=== PATIENT | female | born 1960 | race Caucasian/White ===

== ENCOUNTER 2022-03-18 15:02 | Outpatient (CLI) | payer OTHER, SELFPAY ==
[2022-03-18 10:24] LABS: Cholesterol* 187 mg/dL (90-199)
[2022-03-18 10:25] LABS: HDL Cholesterol* 73 mg/dL (>=50); LDL Cholesterol Calculated 99 mg/dL (<100); Triglycerides* 75 mg/dL (40-149)
[2022-03-18 23:16] LABS: Glucose* 105 mg/dL (60-115)
== END 2022-03-18 15:03 | disposition home or self-care (01) ==
PROVIDERS: PCP Internal Medicine; Visit Provider Internal Medicine
DX: Z01.419 Encounter for gynecological examination (general) (routine) without abnormal findings (principal); E78.5 Hyperlipidemia, unspecified; I10 Essential (primary) hypertension; Z13.1 Encounter for screening for diabetes mellitus
CPT/HCPCS: 80061; 82947

== ENCOUNTER 2022-04-25 14:38 | Outpatient (CLI) | payer OTHER, SELFPAY ==
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
[2022-04-25 17:44] LABS: Chloride* 105 mmol/L (96-114); Potassium* 4.2 mmol/L (3.6-5.1); Sodium* 139 mmol/L (135-149)
[2022-04-25 17:47] LABS: Carbon Dioxide* 27 mmol/L (20-32); Creatinine* 0.9 mg/dL (0.5-1.5); Estimated Glomerular Filt Rate 72 ml/min
[2022-04-25 17:48] LABS: Blood Urea Nitrogen* 16 mg/dL (7-30)
[2022-04-25 18:41] LABS: Glucose* 90 mg/dL (60-115)
== END 2022-04-25 14:39 | disposition home or self-care (01) ==
LOC: NFLDREF 14:39
PROVIDERS: PCP Internal Medicine; Visit Provider Internal Medicine
DX: I10 Essential (primary) hypertension (principal); E78.5 Hyperlipidemia, unspecified
CPT/HCPCS: 80048

== ENCOUNTER 2022-04-28 07:15 | Outpatient (CLI) | payer OTHER, SELFPAY ==
--- OUTSIDE RECORDS SUMMARY | 2022-04-28 07:17 | XMS_ITS | Clinical Summary ---
:1960 Author Organization [employer] [facility] [place] [address] Care Team Providers Name Role Phone Misty [...] TRACKING EVENT Routine 03/24/2022 1:25 PM CDT BEATER [place] THIN PREP PAP Routine 03/24/2022 1:25 PM [...] Organization Address City/State/ZIP Code Phon e Number [facility] [address] [place] [address] LABORATORY-CENTRAL 2000 LABORATORY BEATER HEAD THIN PREP PAP SCREEN IMAGED (03/24/2022 1:25 PM CDT) Component Value Ref Test Analysis Performed At [facility] gist Range Method Time Signature Case Report Gynecologic Cytology Report ? Case: [id number] ? 04/12/2022 ALLRUMNEY Authorizing Provider: ??Marcos villalobos, Zonia Zhang MD ?Collected: ? 03/24/2022 1325 ? 6:32 PM HEALTH Ordering Location: ? [facility] CENTRAL LAB ?Received: ?03/28/2022 08 ? CDT [place] BORATORY-C First Screen: ? Jossie Alexis ? ENTRAL Specimen: ?BEATER HEAD ThinPrep Vial Screening, Cervical ? LABORATORY INTERPRETATI [...] Last Pap Date 04/12/2022 6:32 PM CDT [facility] LABORATORY-CENTRAL LABORATORY Comment: 03/2017 Abnormal Pap or [place] No 04/12/2022 6:32 PM [facility] [place] Bx in last 5 years CDT LABORATORY- CENTRAL LABORATORY Menstrual Status Postmenopausal 04/12/2022 6:32 PM [facility] CDT LABORATORY-CENTRAL LABORATORY [place] Bx Done Today No 04/12/2022 6:32 PM [facility] CDT LABORATORY-CENTRAL LABORATORY Additional 04/12/2022 6:32 PM [facility] Information CDT LABORATORY-CENTRAL LABORATORY Comment: Interpreted at [facility] Laboratory, Central Laboratory - [address], [place] [address] Automated Review Failed 04/12/2022 6:32 PM CDT [facility] LABORATORY-CENTRAL LABORATORY Comment: Processing failed, manual scree jp required. ThinPrep Imaging System, [employer] ANCILLARY TESTING HPV Ordered, 04/12/2022 6:32 PM [facility] BEATER HEAD Please see CDT LABORATORY-CENTRAL separate report LABORATORY Note The pap test is a 04/12/2022 6:32 PM [place] [employer] screening CDT LABORATORY-CENTRAL technique, not a LABORATORY [...] Organization Address City/State/ZIP Code Phon e Number [facility] [address] [place] [address] LABORATORY-CENTRAL 2000 LABORATORY HPV HIGH RISK (03/24/2022 1:25 PM CDT) Analysis Performed At Patho logist Time Signature TYPE 16 Negative Negative 03/29/2022 [facility] 5:45 PM CDT LABORATORY-[place] TRAL LABORATORY TYPE 18 Negative Negative 03/29/2022 [facility] 5:45 PM CDT LABORATORY-[place] TRAL LABORATORY OTHER HIGH Negative Negative 03/29/2022 [facility] RISK TYPES 5:45 PM CDT LABORATORY-[place] TRAL LABORATORY Specimen Anatomical Collection Method Collection Time Receive d Time (Source) Location / / Volume Laterality Other (Cervical) 03/24/2022 1:25 PM 03/28 8:27 CDT AM CDT Narrative [facility] LABORATORY-CENTRAL LABORAT ORY - 03/29/2022 5:45 PM CDT HPV types 16, 18, 31, 33, 35, 39, 45, 51, 52, 56, 58, 59, 66 and 68 DNA were undetectable or below the pre-set threshold. Methodology: Darwin Eli 4800 HPV Test Zonia Trammell MD MICROBIOLOGY Performing Organization Address City/[facility] Code Phon e Number [facility] [address] [place], [place] [address] [address] LABORATORY-CENTRAL 2000 LABORATORY from Last 3 Months Insurance Payer Benefit Plan / Subscriber ID Effective Dates Phone Addre ss Type Group BLUE CROSS BLUE CROSS OF [id number] 2015-Present [address] [place] [address] Care Teams Electronics Department Manager Relationship Specialty Start Date End Date Misty Mckoy DO PCP - General Family Practice 09/05/11
== END 2022-04-28 07:16 | disposition home or self-care (01) ==
PROVIDERS: PCP Internal Medicine; Visit Provider Surgery
DX: Z12.11 Encounter for screening for malignant neoplasm of colon (principal); K57.30 Diverticulosis of large intestine without perforation or abscess without bleeding; Z86.010 Personal history of colon polyps
CPT/HCPCS: 45378; 99153; J1200; J2250; J3010

== ENCOUNTER 2022-05-12 15:04 | Outpatient (CLI) | payer OTHER, SELFPAY ==
--- NOTE | 2022-05-12 15:20 | CRLHL7_ITS ---
For Patients: As a result of the Cures Act, medical imaging exams and procedure reports are released immediately into your electronic medical record. You may view this report before your referring provider. If you have questions, please contact your health care provider. BILATERAL SCREENING MAMMOGRAM WITH COMPUTER-AIDED DETECTION AND TOMOSYNTHESIS TECHNIQUE: CC and MLO views were obtained. These mammographic images have been obtained using full-field digital technique. These mammographic images were interpreted with the benefit of computer-aided detection. Breast Tomosynthesis was used in this interpretation. COMPARISON FILM: 02/04/21, 09/05/19, 04/03/18. FINDINGS: There are scattered areas of fibroglandular density. Biopsy clip RIGHT breast. IMPRESSION: There is no radiographic evidence for malignancy. ASSESSMENT: BI-RADS Category 1: Negative RECOMMENDATION: Routine screening mammogram in 1 year. A lay language report of this examination will be provided to the patient. Saeed Bryan M.D. Diagnostic/Nuclear Medicine Radiologist [email or web address] LAUREN:clement Transcribed: 12:58 p.m. PT/Dictated by: Saeed Bryan MD @ 05/13/2022 8:29:00 AM (Electronically Signed)
--- OUTSIDE RECORDS SUMMARY | 2022-05-12 15:24 | XMS_ITS | Clinical Summary ---
:1960 Author Organization [employer] [facility] [place] [address] Care Team Providers Name Role Phone Misty [...] TRACKING EVENT Routine 03/24/2022 1:25 PM CDT HEALTHCARE NETWORK CONSULTANT THIN PREP PAP Routine 03/24/2022 1:25 PM [...] Organization Address City/State/ZIP Code Phon e Number [facility] [address] [place] [address] LABORATORY-CENTRAL 2000 LABORATORY HEALTHCARE NETWORK CONSULTANT THIN PREP PAP SCREEN IMAGED (03/24/2022 1:25 PM CDT) Component Value Ref Test Analysis Performed At [facility] gist Range Method Time Signature Case Report Gynecologic Cytology Report ? Case: [id number] ? 04/12/2022 [place] Authorizing Provider: ??Marcos villalobos, Zonia Zhang MD ?Collected: ? 03/24/2022 1325 ? 6:32 PM HEALTH Ordering Location: ? [facility] CENTRAL LAB ?Received: ?03/28/2022 08 ? CDT [place] BORATORY-C First Screen: ? Jossie Alexis ? ENTRAL Specimen: ?HEALTHCARE NETWORK CONSULTANT ThinPrep Vial Screening, Cervical ? LABORATORY INTERPRETATI [...] Last Pap Date 04/12/2022 6:32 PM CDT [facility] LABORATORY-CENTRAL LABORATORY Comment: 03/2017 Abnormal Pap or [place] No 04/12/2022 6:32 PM [facility] Bx in last 5 years CDT LABORATORY- CENTRAL LABORATORY Menstrual Status Postmenopausal 04/12/2022 6:32 PM [facility] CDT LABORATORY-CENTRAL LABORATORY [place] Bx Done Today No 04/12/2022 6:32 PM [employer] CDT LABORATORY-CENTRAL LABORATORY Additional 04/12/2022 6:32 PM [facility] Information CDT LABORATORY-CENTRAL LABORATORY Comment: Interpreted at [facility] Laboratory, Central Laboratory - [address], [place] [address] Automated Review Failed 04/12/2022 6:32 PM CDT [facility] LABORATORY-CENTRAL LABORATORY Comment: Processing failed, manual scree jp required. ThinPrep Imaging System, [employer] ANCILLARY TESTING HPV Ordered, 04/12/2022 6:32 PM [facility] HEALTHCARE NETWORK CONSULTANT Please see CDT LABORATORY-CENTRAL separate report LABORATORY Note The pap test is a 04/12/2022 6:32 PM [place] screening CDT LABORATORY-CENTRAL technique, not a LABORATORY [...] Organization Address City/State/ZIP Code Phon e Number [facility] [address] [place] [address] LABORATORY-CENTRAL 2000 LABORATORY HPV HIGH RISK (03/24/2022 1:25 PM CDT) Analysis Performed At Patho logist Time Signature TYPE 16 Negative Negative 03/29/2022 [facility] 5:45 PM CDT LABORATORY-[place] TRAL LABORATORY TYPE 18 Negative Negative 03/29/2022 [facility] 5:45 PM CDT LABORATORY-[place] TRAL LABORATORY OTHER HIGH Negative Negative 03/29/2022 [facility] RISK TYPES 5:45 PM CDT LABORATORY-[place] TRAL LABORATORY Specimen Anatomical Collection Method Collection Time Receive d Time (Source) Location / / Volume Laterality Other (Cervical) 03/24/2022 1:25 PM 03/28 8:27 CDT AM CDT Narrative [facility] LABORATORY-CENTRAL LABORAT ORY - 03/29/2022 5:45 PM CDT HPV types 16, 18, 31, 33, 35, 39, 45, 51, 52, 56, 58, 59, 66 and 68 DNA were undetectable or below the pre-set threshold. Methodology: Darwin Eli 4800 HPV Test Zonia Trammell MD MICROBIOLOGY Performing Organization Address City/[facility] Code Phon e Number [facility] [facility] [address] [place], [place] [address] [address] LABORATORY-CENTRAL 2000 LABORATORY from Last 3 Months Insurance Payer Benefit Plan / Subscriber ID Effective Dates Phone Addre ss Type Group BLUE CROSS BLUE CROSS OF [id number] 2015-Present [address] [place] [address] Care Teams Fish Checker Relationship Specialty Start Date End Date Misty Mckoy DO PCP - General Family Practice 09/05/11
== END 2022-05-12 15:05 | disposition home or self-care (01) ==
LOC: MAMMO 15:04
PROVIDERS: PCP Internal Medicine; Visit Provider Internal Medicine
DX: Z12.31 Encounter for screening mammogram for malignant neoplasm of breast (principal)
CPT/HCPCS: 77063; 77067

== ENCOUNTER 2023-03-31 09:21 | Outpatient (CLI) | payer OTHER, SELFPAY ==
--- OUTSIDE RECORDS SUMMARY | 2023-04-02 05:45 | XMS_ITS | Continuity of Care Document ---
Author Name Unknown Organization [facility] Address [address] [place] [address] Phone Care Team Providers Care Anesthesiologist Attending Name Role Phone Nader Melton MD Unavailable Unavailable Allergies, Adverse Reactions, Alerts Substance Reaction Status Criticality No Known allergies Procedures Procedure Date Office/Outpatient Visit,[facility] 2012 Advance Directives Directive Yes / No Effective Date File Name No Information Encounters Encounter Description Practice Location Reason(s) For Visit Diagnoses Date Provider Providers Copied on Encounter Z [facility] [place], [address], [facility], [place] tel:[phone] [employer] No Information Geronimo Doe. [facility] [place], [address], [place], [id number] , [place]. tel:[phone] Office/Outpat ient Visit,[facility], [facility] [place], [address] [place] [address], [address], [place] tel:[phone] [place] [place] [employer] Geronimo Doe. [facility], [address], [place], [id number] , [place]. tel:[phone] Referring Provider: Misty Morales, [facility] [address], [place], [address] . tel:[phone] Family History Family Member Type Diagnosis Age At Onset Problem (finding) Problem (finding) Payers Payer name Insurance type Covered libertarian ID Darinel walters(s) [facility] [id number] [facility] [id number] Social History Type Description Quantity Date Captured Comments Sex Female Smoking Status No Information Chief Complaint And Reason For Visit No Information Reason For Referral Reason For Referral No Information History Of Present Illness Encounter Date Complaint History Of Prese nt Illness No Information Functional Status Date Functional Assessmen t No Information Instructions Date Instruction Additional Infor mation No Information Assessments Type Assessment Date No Information Patient Care Teams Name Effective Dates (start - stop) Status Members No Information
== END 2023-03-31 09:22 | disposition home or self-care (01) ==
LOC: NFLDREF 04-02 05:43
PROVIDERS: PCP Internal Medicine; Referring Provider Internal Medicine; Visit Provider Internal Medicine
DX: E78.5 Hyperlipidemia, unspecified (principal)
CPT/HCPCS: 80061

== ENCOUNTER 2023-07-05 14:21 | Outpatient (CLI) | payer OTHER, SELFPAY ==
--- OUTSIDE RECORDS SUMMARY | 2023-07-05 14:25 | XMS_ITS | Continuity of Care Document ---
Author Name Unknown Organization [facility] Address [address] [place] [address] Phone Care Team Providers Care Hand Mounter Name Role Phone Nader Melton MD Unavailable Unavailable Allergies, Adverse Reactions, Alerts Substance Reaction Status Criticality No Known allergies Procedures Procedure Date Office/Outpatient Visit,[facility] 2012 Advance Directives Directive Yes / No Effective Date File Name No Information Encounters Encounter Description Practice Location Reason(s) For Visit Diagnoses Date Provider Providers Copied on Encounter Z [facility] [place], [address] [place] [address], [facility], [place] tel:[phone] [employer] No Information Geronimo Doe. [facility] [place], [address], [place], [id number] , [place]. tel:[phone] Office/Outpat ient Visit,[facility], [facility] [place], [address] [place] [address], [address], [place] tel:[phone] [place] CERV[employer] Geronimo Doe. [facility], [address], [place], [address] , [place]. tel:[phone] Referring Provider: Misty Morales, [facility] [address], [place], [address] . tel:[phone] Family History Family Member Type Diagnosis Age At Onset Problem (finding) Problem (finding) Payers Payer name Insurance type Covered libertarian ID Darinel walters(s) [facility] [id number] [facility] [id number] Social History Type Description Quantity Date Captured [...]
--- NOTE | 2023-07-05 14:40 | CRLHL7_ITS ---
For Patients: As a result of the Century Cures Act, medical imaging exams and procedure reports are released immediately into your electronic medical record. You may view this report before your referring provider. If you have questions, please contact your health care provider. BILATERAL SCREENING MAMMOGRAM WITH COMPUTER-AIDED DETECTION AND TOMOSYNTHESIS TECHNIQUE: CC and MLO views were obtained. These mammographic images have been obtained using full-field digital technique. These mammographic images were interpreted with the benefit of computer-aided detection. Breast Tomosynthesis was used in this interpretation. COMPARISON FILM: 05/12/22, 02/04/21, 09/05/19. FINDINGS: There are scattered areas of fibroglandular density IMPRESSION: There is no radiographic evidence for malignancy. ASSESSMENT: BI-RADS Category 1: Negative RECOMMENDATION: Routine screening mammogram in 1 year. A lay language report of this examination will be provided to the patient. Jose J Vera M.D. Diagnostic Radiologist [email or web address] SULLY/Dictated by: Jose J Vera MD @ 07/06/2023 9:17:00 AM (Electronically Signed)
== END 2023-07-05 14:22 | disposition home or self-care (01) ==
LOC: MAMMO 14:23
PROVIDERS: PCP Internal Medicine; Visit Provider Internal Medicine
DX: Z12.31 Encounter for screening mammogram for malignant neoplasm of breast (principal)
CPT/HCPCS: 77063; 77067

== ENCOUNTER 2023-10-01 11:45 | Emergency (ER) | payer OTHER, SELFPAY ==
[2023-10-01 11:52] VITALS: BP 154/95; PULSE 84; RESP 16; TEMP 37.7; O2SAT 99; BMI 26.3
--- NOTE | 2023-10-01 12:03 | CT_ITS ---
Patient: ANTHONY CURIEL Facility:?[facility] Patient ID:?[id number] Site Patient ID:?[id number]. Site :?[id number] Study:?CT-Abdomen/Pelvis w/ 80cc [id number] 1:42:10 PM Ordering Physician:Geri Colorado Final Report: INDICATION: Left lower quadrant pain TECHNIQUE: CT abdomen and pelvis acquired with 80 mL Isovue 370 IV contrast. COMPARISON: None. FINDINGS: Lower chest: Unremarkable. Liver: Several cysts throughout the liver. Gallbladder and bile ducts: Unremarkable. No stones or inflammation. No biliary dilatation. Pancreas: Unremarkable. No mass or inflammation. Spleen: Unremarkable. Normal in size. No masses. Adrenal glands: Unremarkable. No nodules. Kidneys: 3.3 cm mass arising from the inferior pole of the right kidney containing macroscopic fat, compatible with a benign angiomyolipoma. GI tract: 2 foci of acute diverticulitis in the sigmoid colon, 1 in the proximal sigmoid on image 92 of series 5 and the 2nd in the mid sigmoid on image 102. Fluid in the pelvis but no free air or abscess. Vasculature: Unremarkable. Mesenteric arteries are patent. Lymph nodes: No lymphadenopathy. Omentum/Peritoneum/Abdominal Wall: Unremarkable. No sign of mass or infiltration. No free air or significant free fluid. Pelvis: Unremarkable. Bones: Unremarkable for age. IMPRESSION: 1. Two separate foci of acute diverticulitis involving the proximal and mid sigmoid colon. No abscess or free air. 2. 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 Please note that all CT scans at this facility use dose modulation, iterative reconstruction, and/or weight-based dosing when appropriate to reduce radiation dose to as low as reasonably achievable. Dictated by Dl Hussein MD @ 10/01/2023 2:07:16 PM Signed by:?Dl Hussein MD @10/01/2023 2:07:16 PM (Electronic Signature)
--- NOTE | 2023-10-01 12:05 | ED.ABDPAIN ---
HPI - Abdominal Pain General Date Seen: 10/01/23 Chief Complaint: Abdominal Pain Stated Complaint: Abdominal pain Time Seen by Provider: 10/01/23 11:48 Source: patient Mode of arrival: ambulatory Limitations: no limitations History of Present Illness HPI narrative: Patient is a 62-year-old female with no pertinent medical problems presenting to emergency department for left lower quadrant abdominal pain. She states she has been having this left lower quadrant pain since yesterday. Pain is intermittent and when it is at its worst is an 8/10 crampy sensation. Does not radiate anywhere. Initially thought it was a muscle strain because she was doing an exercise routine couple days ago that she said was too difficult for her. She became concerned because the pain continued and she has not had much of an appetite. She states she is very regular with her diet and always eats a couple of areas in the morning was unable to due to the discomfort. Is also concerned because she always has a bowel movement in the morning but did not have 1 yet today. Has been passing a little bit of gas but not as much as normal. Denies fevers but has had chills. States she has had previous colonoscopies that said she has diverticulosis. Has never had pain like this before she states. Not aware of any sick contacts. Denies nausea or vomiting. Denies dysuria. Related Data Previous Rx's Medication Instructions Recorded simvastatin 10 mg tablet 10 mg PO .HS #90 tabs 04/04/23 valsartan 80 1 tab PO QDAY #90 tabs 04/04/23 mg-hydrochlorothiazide 12.5 mg tablet fluorouracil 5 % topical cream 1 applic topical .1xw #40 grams 09/07/23 metronidazole 0.75 % topical cream 1 applic topical BID #45 grams 09/07/23 (MetroCream) Allergies Allergy/AdvReac Type Severity Reaction Status Date / Time No Known Drug Allergies Allergy Verified 10/01/23 11:56 Review of Systems Status of ROS Reports: 10 or more systems reviewed and unremarkable except as noted in History and below [facility] Medical History Actinic keratosis ?L57.0 - Actinic keratosis (ICD-10) Surgical History History of foot surgery ?Z98.890 - Other specified postprocedural states (ICD-10) History of benign breast biopsy (2015) ?Z98.890 - Other specified postprocedural states (ICD-10) History of basal cell carcinoma (BCC) of skin (2019) ?Z85.828 - Personal history of other malignant neoplasm of skin (ICD-10) Social History What is your current living situation?: I presently have a place to live Problems where you live: no known problems In the past 12 months, utilities in danger of being shut off: no In past 12 months, lack of transportation kept you from medical appts, meetings, work, or getting things needed for daily living: no In the past 12 mos, have been you worried that your food would run out before you had money to buy more?: never true In the past 12 mos, the food you bought just didn't last and you didn't have money to buy more?: never true Smoking Status: Current some day smoker How often does anyone, including family, friends and others, physically hurt you: never How often does anyone, including family, friends and others, insult or talk down to you: never How often does anyone, including family, friends and others, threaten you with harm: never How often does anyone, including family, friends and others, scream or curse at you: never Little interest or pleasure in doing things: not at all Feeling down, depressed, or hopeless: not at all Exam Narrative: Exam Narrative: Const: Well-nourished, Well-developed, in mild distress Eyes: PERRL, no conjunctival injection, and symmetrical lids HENT: Atraumatic external nose and ears. Moist mucous membranes. Neck: Symmetric, trachea midline, No thyromegaly. CVS: RRR, No murmurs or gallops. Peripheral pulses 2+ and equal in all extremities RESP: Unlabored respiratory effort. Clear to auscultation bilaterally. GI: Left lower quadrant tenderness, Nondistended, No rebound or guarding. MSK:Extremities w/o deformity, Normal Active ROM Skin: Warm, Dry. No rashes or lesions. Neuro: Normal Muscle tone, No focal neurological deficits. Psych: Awake, Alert, & Oriented x3. Appropriate mood and affect. Const: Vital Signs, click to edit/add: Vital Signs - 24 hr 10/01/23 11:52 Temperature 99.8 F H Pulse Rate [Right Pulse Oximeter] 84 Respiratory Rate 16 Blood Pressure [Ri ght Upper Arm] 154/95 H Pulse Oximetry 99 Oxygen Delivery Me thod Room Air Course Vital Signs Vital signs: Initial Vital Signs Temperature 99.8 F H 10/01/23 11:52 Temperature Source Temporal Artery Scan 10/01/23 11:52 Pulse Rate 84 10/01/23 11:52 Pulse Rhythm Regular 10/01/23 11:52 Pulse Strength 3+ Normal 10/01/23 11:52 Respiratory Rate 16 10/01/23 11:52 Blood Pressure 154/95 H 10/01/23 11:52 Blood Pressure Mean 114 H 10/01/23 11:52 Blood Pressure Position Sitting 10/01/23 11:52 Pulse Oximetry 99 10/01/23 11:52 Oxygen Delivery Method Room Air 10/01/23 11:52 Vital Signs Temperature 99.8 F H 10/01/23 11:52 Pulse Rate 84 10/01/23 11:52 Respiratory Rate 16 10/01/23 11:52 Blood Pressure 154/95 H 10/01/23 11:52 Pulse Oximetry 99 10/01/23 11:52 Oxygen Delivery Method Room Air 10/01/23 11:52 Temperature 99.8 F H 10/01/23 11:52 Pulse Rate 84 10/01/23 11:52 Respiratory Rate 16 10/01/23 11:52 Blood Pressure 154/95 H 10/01/23 11:52 Pulse Oximetry 99 10/01/23 11:52 Oxygen Delivery Method Room Air 10/01/23 11:52 MDM - Abdominal Pain MDM Narrative Medical decision making narrative: Patient is a 62-year-old female presenting for left lower quadrant abdominal pain. She does have known diverticulosis so diverticulitis is at the top of my differential. Seems unlikely to be a small bowel obstruction as she has no previous abdominal surgeries. Symptoms can also be secondary to constipation. Will also look for signs of a UTI with a urinalysis. CBC, CMP, COVID/flu/RSV, lipase all ordered. Also ordered a CT scan with IV contrast of the abdomen pelvis. She is not requesting any pain or nausea medicine at this time. CMP shows no concerning abnormalities. Bilirubin slightly elevated 2.0 but this is not a concerning level overall and is unlikely because of her symptoms. No signs of jaundice. Urinalysis shows no concerning findings. COVID/flu/RSV is negative. CBC shows a slightly elevated white count at 12.98. It is neutrophil predominant. This could be sign of bacterial infection will wait for the CT scan to better evaluate. She is not meeting sirs criteria. CT scan shows 2 separate foci of acute diverticulitis. Is consistent with her pain. Is uncomplicated. Antibiotics or no longer recommended for uncomplicated diverticulitis. She will follow up outpatient the primary care provider. 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 Lab Data Labs: Lab Results 10/01/23 10/01/23 Range/Units 12:19 12:24 WBC 12.98 H (4.50-11.00) K/uL RBC 4.38 (4.00-5.20) m/uL Hgb 13.1 (12.0-16.0) gm/dL Hct 39.2 (33.0-51.0) % MCV 90 (80-100) fL MCH 30 (26-34) pg MCHC 33 (32-36) gm/dL RDW Coeff of Coreen 12.9 (11.5-15.5) % Plt Count 262 (140-440) K/uL Neut % (Auto) 77.8 H (42.0-72.0) % Lymph % (Auto) 11.2 L (20-44) % [place] % (Auto) 10.5 (0.0-11.0) % Eos % (Auto) 0.1 (0.0-7.0) % Baso % (Auto) 0.2 (0.0-3.0) % Neut # (Auto) 10.10 H (1.7-7.0) K/uL Lymph # (Auto) 1.50 (0.90-2.90) K/uL [place] # (Auto) 1.40 H (0.00-0.90) K/UL Eos # (Auto) 0.00 (0.00-0.50) K/uL Baso # (Auto) 0.00 (0.00-0.30) K/uL Abs Immat Gran (auto) 0.00 (0.00-0.30) K/uL Imm/Tot Granulo (auto) 0.2 % Sodium 138 (135-149) mmol/L Potassium 3.6 (3.6-5.1) mmol/L Chloride 105 (96-114) mmol/L Carbon Dioxide 25 (20-32) mmol/L Anion Gap 8 (7-15) mEq/L BUN 13 (7-30) mg/dL Creatinine 0.8 (0.5-1.5) mg/dL Estimated Creat Clear 53.91 Estimated GFR 83 ml/min Glucose 115 (60-115) mg/dL Calcium 10.1 (8.4-10.6) mg/dL Total Bilirubin 2.0 H (0.1-1.5) mg/dL AST 28 (12-35) U/L ALT 22 (4-35) U/L Alkaline Phosphatase 55 (40-150) U/L Total Protein 7.3 (6.0-8.3) g/dL Albumin 4.2 (3.3-5.0) g/dL Lipase 50 (23-300) U/L Urine Color Yellow (Yellow) Urine Appearance Clear (Clear) Urine pH 7.0 (5.0-8.5) Ur Specific [place] 1.010 (1.000-1.030) Urine Protein Negative (Negative) Urine Glucose (UA) Negative (Negative) Urine Ketones Negative (Negative) Urine Blood Trace-lysed A (Negative) Urine Nitrite Negative (Negative) Urine Bilirubin Negative (Negative) Urine Urobilinogen 0.2 (0.2-1.0) Ur Leukocyte Esterase Negative (Negative) Urine RBC 2-5 A (0-2) Urine WBC 0-2 (0-5) Ur Squamous Epith Cells None (None-Few) Urine Bacteria None (None) SARS-CoV-2 (PCR) Negative SARS-CoV-2 (Negative) Influenza Type A (PCR) Negative PCR FLU A (Negative) Influenza Type B (PCR) Negative PCR FLU B (Negative) RSV (PCR) Negative PCR RSV (Negative) Imaging Data CT scan abdomen and pelvis: Radiologist's impression: 1. Two separate foci of acute diverticulitis involving the proximal and mid sigmoid colon. No abscess or free air. 2. 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 Please note that all CT scans at this facility use dose modulation, iterative reconstruction, and/or weight-based dosing when appropriate to reduce radiation dose to as low as reasonably achievable. Dictated by Dl Hussein MD @ 10/01/2023 2:07:16 PM Discharge Plan Discharge Clinical Impression: Diverticulitis Patient Disposition: Home, Self-Care Condition: Stable Instructions: Diverticulitis (DC) Additional Instructions: It is not recommended to give you antibiotics for uncomplicated diverticulitis as does not shorten time of recovery time or decrease rate of recurrence. Symptoms likely persist over the following week and should start improving. Take Tylenol and ibuprofen for pain. Return to emergency department for new or worsening symptoms Activity Level: No Restrictions Discharge Diet: Regular Prescriptions: No Action simvastatin 10 mg tablet 10 mg PO .HS Qty: 90 3RF valsartan-hydrochlorothiazide 80-12.5 mg tablet 1 tab PO QDAY Qty: 90 3RF fluorouracil 5 % cream 1 applic topical .1xw Qty: 40 0RF metronidazole [MetroCream] 0.75 % cream 1 applic topical BID Qty: 45 1RF Rx Instructions: Apply topically to face Monday, Monday and Monday. Follow Up/Referrals: Zonia Trammell MD [Primary Care Provider] - Stand Alone Forms: [employer] Info Instructions
[2023-10-01 12:31] LABS: Basophils Percent Auto 0.2 % (0.0-3.0); Eosinophils Percent Auto 0.1 % (0.0-7.0); Hematocrit 39.2 % (33.0-51.0); Hemoglobin* 13.1 gm/dL (12.0-16.0); Immature Granulocytes Pct Auto 0.2 %; Lymphocytes Percent Auto 11.2 % (20-44); Mean Corpuscular HGB Conc 33 gm/dL (32-36); Mean Corpuscular Hemoglobin 30 pg (26-34); Mean Corpuscular Volume 90 fL (80-100); Monocytes Percent Auto 10.5 % (0.0-11.0); Neutrophils Percent Auto 77.8 % (42.0-72.0); Platelet Count* 262 K/uL (140-440); RDW Coefficient of Variation % 12.9 % (11.5-15.5); Red Blood Count 4.38 m/uL (4.00-5.20); White Blood Count* 12.98 K/uL (4.50-11.00)
[2023-10-01 12:35] LABS: Slide Review Reflex No
[2023-10-01 12:40] LABS: Appearance Urine Clear (Clear); Bilirubin Urine Negative (Negative); Blood Urine Trace-lysed (Negative); Color Urine Yellow (Yellow); Glucose Urine Negative (Negative); Ketones Urine Negative (Negative); Leukocyte Esterase Urine Negative (Negative); Nitrite Urine Negative (Negative); Protein Urine Negative (Negative); Urobilinogen Urine 0.2 (0.2-1.0)
[2023-10-01 12:49] LABS: Albumin* 4.2 g/dL (3.3-5.0); Chloride* 105 mmol/L (96-114); Sodium* 138 mmol/L (135-149)
[2023-10-01 12:50] LABS: Potassium* 3.6 mmol/L (3.6-5.1)
[2023-10-01 12:52] LABS: Alanine Aminotransferase* 22 U/L (4-35); Alkaline Phosphatase* 55 U/L (40-150); Anion Gap 8 mEq/L (7-15); Aspartate Amino Transferase* 28 U/L (12-35); Blood Urea Nitrogen* 13 mg/dL (7-30); Calcium* 10.1 mg/dL (8.4-10.6); Carbon Dioxide* 25 mmol/L (20-32); Creatinine* 0.8 mg/dL (0.5-1.5); Est. Creatinine Clearance* 53.91; Estimated Glomerular Filt Rate 83 ml/min; Glucose* 115 mg/dL (60-115); Lipase* 50 U/L (23-300); Total Protein* 7.3 g/dL (6.0-8.3)
[2023-10-01 13:06] LABS: WBC Urine 0-2 (0-5)
[2023-10-01 13:10] LABS: PCR FLU A Negative PCR FLU A (Negative); PCR FLU B Negative PCR FLU B (Negative); PCR RSV Negative PCR RSV (Negative); SARS PCR* Negative SARS-CoV-2 (Negative)
== END 2023-10-01 14:39 | disposition home or self-care (01) ==
PROVIDERS: Emergency Provider Student in an Organized Health Care Education/Training Program; PCP Internal Medicine
DX: K57.32 Diverticulitis of large intestine without perforation or abscess without bleeding (principal)
CPT/HCPCS: 36415; 74177; 80053; 81001; 83690; 85025; 87631; 99283; 99284; Q9967

== ENCOUNTER 2024-05-06 10:00 | Outpatient (CLI) | payer OTHER, SELFPAY ==
--- OUTSIDE RECORDS SUMMARY | 2024-05-09 07:39 | XMS_ITS | Data Portability ---
Author Organization [facility], Main Office Address [address] [place] [address] Assessment Encounter Date Assessment Date Assessment LastModified by Organization Details LastModified Time 09/03/2018 09/03/2018 1. Basal carcino ma right upper medial cheek. We discussed the risks benefits of Mohs surgery including pain, discomfort, bruising, healing, the length of the scar versus the width of the defect. Potential need for revision. Chance of infection of 2%. Verbal and written informed consent obtained. Anatomic lines marked prior to anesthesia. Area cleansed with alcohol followed by Betadine. The area was anesthetized 1% lidocaine with epinephrine. M19-018 Stage I: Curette debulking performed. 2 mm margins taken circumferentially to the deep dermis abutting the subcutis. One section total. Interpretation reveals no basaloid islands. Total stages 1, total sections 1. Final defect measuring approximately 1.5 x 1.1 cm. Further anesthesia was injected 1% lidocaine with epinephrine. The area was closed in elliptical fashion removing redundancy superior inferior lateral. Undermined all directions 1 cm. Hemostasis obtained with electrocautery. Closed with 5-0 Vicryl and then 5-0 Prolene. Final closure length 3.79 cm. Wound care instructions given. Pressure dressing applied. Recommend ice on and off for the next 24 hours. Sutures removed in 1 week in [place]. Written and verbal wound care instructions given. Cell phone number given. [email or web address] Not available 09/04/2018 00:29:49 Plan of Treatment Reminders Order Date Submit Date Provider Last Modified By Organization Details Last Modified Time Details Appointments None record ed. Lab None record ed. Referral None record ed. Procedures None record ed. Surgeries None record ed. Imaging None record ed. Medication Orders None record ed. Patient TargetsNo targets recorded. Patient InstructionsNo instructions recorded. Reason for Referral None Reported. Problems Name Problem SNOMED Code Status Onset Date Resolution Date Notes Provider Name and Address Organization Details Recorded Time Hyperlipidemi a 80646010 Active 2018 Roque Cee MD [address] [place] [address],[facility], [place], [address], [facility] 9 22:43:41 Problem Notes None recorded. Medical Equipment None Reported. Allergies No known drug allergies Medications Name Sig Start Date Stop Date Status Note LastModified by Organization Details LastModified Time fluorouracil 5 % topical cream active Not Available Not Available Not Available simvastatin 10 mg tablet 1 tablet every day by oral route. active Not Available Not Available No t Available Vitals None Recorded Social History Question Answer Notes LastModified by Organizat ion Details LastModified Time Tobacco Smoking Status Current Every Day Smoker Not Available [facility] 05/05/2020 03:34:37 What Is Your Level Of Alcohol Consumption? Moderate [id number] Information not available 05/05/2020 Animal Exposure? Yes 2 Dogs, 1 Cat Information not available 09/03/2018 What Was The Date Of Your Most Recent Tobacco Screening? 09/03/2018 [id number] Information not available 05/05/2020 Sun Exposure Minimal Information not available 09/03/2018 Do You Use Sunscreen Routinely? Yes [id number] Information not available 05/05/2020 Tanning Bed Exposure No Information not available 09/03/2018 Sex: Unknown Functional Status None recorded. Mental Status None recorded. Family History Relationship Description Onset Age of this Age Resolved Age Notes LastModified by Organization Details LastModified Time Maternal Uncle Basal cell carcinoma of skin 60 Not available 2018 10:42:23 Father Basal cell carcinoma of skin 60 Not available 2018 10:42:23 Mother Basal cell carcinoma of skin 65 Not available 2018 10:42:23 Maternal Grandfather Diabetes mellitus 70 Not available 2018 10:42:23 Paternal Grandmother Malignant tumor of breast 62 65 Not available 2018 10:42:23 Medical History Condition Response Diabetes N Bleeding Disorder N Squamous Cell Carcinoma N Arthritis N Blood Clot N AIDS/HIV N Tuberculosis N Cancer N Stroke N Melanoma N Thyroid Problems N Asthma N Pacemaker N Anemia N Basal Cell Carcinoma Y Skin Cancer Y Hepatitis N Liver Disease N Heart Disease N Pulmonary Embolism N Hypertension N Seasonal Allergies N Kidney Disease N Gynecological HistoryNo gynecological history recorded. Obstetrics History GPAL:G 0 P 0 0 0 0 Past Encounters Encounter ID Performer Location Encounter Start Date Encounter Closed Date Diagnosis/Indication Diagnosis SNOMED-CT Code Diagnosis ICD10 Code [id number] Roque Cee MD Main Office [address] [facility] [address],[facility] [place] [address] 09/03/2018 10:39:17 09/03/2018 22:53:03 Basal cell carcinoma of face [id number] C44.319 Health Concerns Section Related Observation LastModified by Organization Detai ls LastModified Time None Recorded Concern Status LastModified by Organization Details LastModified Time None Recorded Advance Directives Directive None Recorded Payers Encounter Date Sequence Insurance Name Policy Number Policy Soto Covered Member ID Soto Member ID Guarantor Name 09/03/2018 1 [employer] CHO[employer] [facility] PL[facility] (POS) IFB Diya Watts [id number] Diya Watts 09/03/2018 2 [employer] IFB Diya Watts [id number] Diya Watts Notes Date Note Type Note Provider Name and Address Organization Details Recorded Time 09/03/2018 text/html HPI Notes: 57-year-old female known to me from the [facility] where I biopsied a keratotic lesion most likely basaloid carcinoma on the right medial cheek. Potentially desmoplastic trichoepithelioma. We discussed the differential plan to proceed with procedure for basal cell carcinoma. Both these lesions act like a basal cell carcinoma. She is accompanied by her today. Past medical history includes hyperlipidemia. Social history does not smoke. She is a realtor. Family history no basal cell squamous cell nor melanoma. Roque Cee MD [address] [facility] [place], [address], [facility] 09/04/2018 00:29:53 OBGyn Episode No OBEpisode recorded.
--- OUTSIDE RECORDS SUMMARY | 2024-05-09 07:39 | XMS_ITS | Clinical Summary ---
Author Organization [facility] Address [place], [place] [address] Care Team Providers Care Farm Operations Manager Name Role Phone Misty Mckoy Primary Care Provider Allergies No known active allergies Medications No known medications Active Problems Problem Noted Date Diagnosed Date Onychomycosis-right second toe 12/31/2013 Personal history of colonic polyps 09/13/2011 Overview (09/13/2011): Colonoscopy 09/2011 polyp repeat in 5 years Unspecified vitamin D deficiency 09/02/2009 Unspecified hypothyroidism 09/02/2009 Resolved Problems Problem Noted Date Diagnosed Date Resolved Date Anxiety State, Unspecified 03/07/2007 0 02/16/2012 Immunizations Name Administration Dates Next Due DT (Age < 7 years) 02/23/2000 Tdap 05/04/2011 Family History Medical History Relation Name Comments Cancer Maternal Grandfather basal c ell skin cancer Diabetes Maternal Grandfather Cancer Maternal Grandmother lung- s mall cell (non smoker)/basal cell skin cancer Cancer-breast Paternal Grandmother Anesthesia Problem No Family History Blood Disease No Family History Relation Name Status Comments Brother Alive Father Alive Maternal Grandfather Maternal Grandmother Mother Alive Paternal Grandmother Social History Tobacco Use Types Packs/Day Years Used Date Smoking Tobacco: Every Day Cigarettes Last attempted to quit: 10/02/2003 Smokeless Tobacco: Never Tobacco Cessation:Ready to Q uit: No; Counseling Given: Yes Alcohol Use Standard Drinks/Week Comments Yes 5.8 (1 standard drin k = 0.6 oz pure alcohol) 1 glass of wine a day / 7-10 drinks per wk Sex and Gender Information Value Date Recorded Sex Assigned at Not on file Gender Identity Not on file Sexual Orientation Not on file Obstetrics History Last Filed Vital Signs Vital Sign Reading Time Taken Comments Blood Pressure 145/73 04/27/2016 1:52 PM CDT Pulse 86 04/27/2016 1:52 PM CDT Temperature 36.4 ??C (97.6 ??F) 09/17/2015 8:40 AM CD T Respiratory Rate - - Oxygen Saturation 100% 04/27/2016 1:52 PM CDT Inhaled Oxygen Concentration - - Weight 66.9 kg (147 lb 6.4 oz) 04/27/2016 1:52 P M CDT Height 166 cm (5' 5.35) 04/27/2016 1:52 PM CDT Body Mass Index 24.26 04/27/2016 1:52 PM CDT Plan of Treatment Health Maintenance Due Date Last Done Comments HIV for age 15-65 11/06/1974 Hepatitis C screening for age 18-79 11/06/1977 Zoster (shingles) series for age 50+ (1 of 2) 11/06/2009 Mammogram for age 45-75 05/13/2016 05/13/20 15, 05/11/2015, 02/25/2013, Additional history exists Colonoscopy through age 75 09/12/2016 09/13/2011, Depression screening for age 12+ 09/16/2016 09/17/2015 BMI (ht and wt on same day) for age 18+ 04/27/2017 04/27/2016 Lipids for age 45-75 02/25/2018 02/25/2013, 12/26/19 09 Tetanus booster 05/04/2021 05/04/2011 COVID-19 vaccine series (2023- season) 2024 Influenza for age 50-64 03/03/2024 05/04/2011 (Decli braden) Pap test for age 21-65 03/24/2025 2, 03/24/2022, 03/09/2017, Additional history exists Tdap Completed 05/04/2011 Pneumococcal series for age 6-64 Aged Out No longer eligible based on patient's age to complete this topic Procedures Procedure Name Priority Date/Time Associated Diagnosis Comments HPV HIGH RISK Routine 03/24/2022 1:25 PM CDT XR FFDM MAMMO UNI ADDL VIEWS RIGHT (IA) Routine 05/13/2015 2:30 PM MITTEN SEWER Abnormal mammogram LIPID PANEL W REFLEX MEASURED LDL Routine 02/25/2013 12:14 PM CDT Screening, lipid from Last 3 Months or Most Recently Relevant to Health Maintenance Results * HPV HIGH RISK (03/24/2022 1:25 PM CDT) TYPE 16 Negative Negative 03/29/2022 5:45 PM CDT [facility] TYPE 18 Negative Negative 03/29/2022 5:45 PM CDT [facility] OTHER HIGH RISK TYPES Negative Negative 03/29/2022 5:45 PM CDT [facility] Other (Cervical) 03/24/2022 1:25 PM CDT 03/28/2022 8:27 AM CDT Narrative [facility] - 03/29/2022 5:45 PM CDT HPV types 16, 18, 31, 33, 35, 39, 45, 51, 52, 56, 58, 59, 66 and 68 DNA were undetectable or below the pre-set threshold. Methodology: [employer] 4800 HPV Test Zonia Trammell MD MICROBIOLOGY [facility] [address] [place] [address], * XR FFDM MAMMO UNI ADDL VIEWS RIGHT (05/13/2015 2:30 PM MITTEN SEWER) Anatomical Region Laterality Modality BREASTS, Breast Right Right Mammograph y Impressions 05/13/2015 7:25 PM MITTEN SEWER BI-RADS Category 4: Suspicious RECOMMENDATION: ??Stereotactic biopsy. NOTE: ??I discussed today's imaging findings with the patient. ??The biopsy will be scheduled through the Clinic Commutator Operator prior to the patient leaving today. Jack Vieira D.O. Diagnostic Radiologist [email or web address] GLORIA/yamilka ?? / Narrative 05/13/2015 7:25 PM MITTEN SEWER ADDITIONAL VIEWS RIGHT BREAST DIGITAL MAMMOGRAM, 05/13/2015 CLINICAL HISTORY: ??Recall for further evaluation of developing cluster of microcalcifications in the posterolateral RIGHT breast seen on screening mammogram 05/11/2015. ?? BREAST COMPOSITION: ??Scattered fibroglandular densities. TECHNIQUE: ??Standard MLO, standard ML and magnification views of the RIGHT breast in the MLO and CC projections. FINDINGS: ??Examination demonstrates an indeterminate cluster of microcalcifications in the posterior 9 o? clock position of the RIGHT breast. ??The cluster measures approximately 3 mm in diameter. ?? Misty Mckoy DO MAMMO * (ABNORMAL) LIPID PANEL W REFLEX MEASURED LDL (02/25/2013 12:14 PM CDT) CHOLESTEROL,TOTAL 207(H) 100 - 199 mg/dL 02/25/2013 12:43 PM CDT [facility] TRIGLYCERIDES 103 <150 mg/dL 02/25/2013 12:43 PM CDT [facility] HDL CHOLESTEROL 73 >40 mg/dL 3 12:43 PM T [facility] NON-HDL CHOLESTEROL 134 <145 mg/dl 02/25/2013 12:43 PM T [facility] CHOL/HDL RATIO 2.84 <4.50 02/25/2013 12:43 PM T [facility] LDL CHOLESTEROL 113 <=130 mg/dL 02/25/2013 12:43 PM T [facility] PATIENT STATUS NON-FASTI NG 02/25/2013 12:43 PM T [facility] Blood specimen (specimen) BLOOD SPECIMEN / Unknown Venipuncture / Unknown 02/25/2013 12:14 PM CDT 02/25/2013 12:14 PM CDT Misty Mckoy DO CHEMISTRY [facility] [address] [place] [address] from Last 3 Months or Most Recently Relevant to Health Maintenance Care Teams Farm Operations Manager Relationship Specialty Start Date End Date Misty Mckoy DO PCP - General Family Practice 09/05/11
--- OUTSIDE RECORDS SUMMARY | 2024-05-09 07:39 | XMS_ITS | Continuity of Care Document ---
Author Organization [facility] Address [phone] Phone Care Team Providers Care Order Takers Supervisor Name Role Phone Nader Melton MD Unavailable Unavailable Allergies, Adverse Reactions, Alerts Substance Reaction Status Criticality No Known allergies Procedures Procedure Date Office/Outpatient Visit,[facility] 2012 Advance Directives Directive Yes / No Effective Date File Name No Information Encounters Encounter Description Practice Location Reason(s) For Visit Diagnoses Date Provider Providers Copied on Encounter [facility], [address] [place] [address], , [address], [place] tel:[phone] Relayr No Information 4 Geronimo Doe. [facility], [address], [place], [address], [place]. tel:[phone] Office/Outpat ient Visit,[facility], [facility] [place], [address], , [address], [place] tel:[phone] [facility] 3 Geronimo Doe. [facility], [address], [place], [address], . tel:[phone] Referring Provider: Misty Morales, [facility] [address], [place], [address] . tel:[phone] Family History Family Member Type Diagnosis Age At Onset Problem (finding) Problem (finding) Payers Payer name Insurance type Covered republican ID Darinel walters(s) [facility] [id number] [facility] [id number] Social History Type Description Quantity Date Captured [...]
== END 2024-05-06 10:01 | disposition home or self-care (01) ==
LOC: NFLDREF 05-09 07:37
PROVIDERS: PCP Internal Medicine; Referring Provider Internal Medicine; Visit Provider Internal Medicine
DX: E78.5 Hyperlipidemia, unspecified (principal); I10 Essential (primary) hypertension
CPT/HCPCS: 80048; 80061

== ENCOUNTER 2024-07-08 10:06 | Outpatient (CLI) | payer OTHER, SELFPAY ==
--- NOTE | 2024-07-08 10:15 | CRLHL7_ITS ---
For Patients: As a result of the Century Cures Act, medical imaging exams and procedure reports are released immediately into your electronic medical record. You may view this report before your referring provider. If you have questions, please contact your health care provider. BILATERAL SCREENING MAMMOGRAM WITH COMPUTER-AIDED DETECTION AND TOMOSYNTHESIS TECHNIQUE: CC and MLO views were obtained. These mammographic images have been obtained using full-field digital technique. These mammographic images were interpreted with the benefit of computer-aided detection. Breast Tomosynthesis was used in this interpretation. COMPARISON FILM: 07/05/23, 05/12/22, 02/04/21. FINDINGS: There are scattered areas of fibroglandular density. IMPRESSION: There is no radiographic evidence for malignancy. ASSESSMENT: BI-RADS Category 1: Negative RECOMMENDATION: Routine screening mammogram in 1 year. A lay language report of this examination will be provided to the patient. Jose J Vera M.D. Diagnostic Radiologist [email or web address] SP/Dictated by: Jose J Vera MD @ 07/08/2024 11:43:00 AM (Electronically Signed)
== END 2024-07-08 10:07 | disposition home or self-care (01) ==
LOC: MAMMO 10:07
PROVIDERS: PCP Internal Medicine; Visit Provider Internal Medicine
DX: Z12.31 Encounter for screening mammogram for malignant neoplasm of breast (principal)
CPT/HCPCS: 77063; 77067

== ENCOUNTER 2025-03-06 09:00 | Outpatient (RCR) | payer MEDICARE, BC, SELFPAY ==
--- NOTE | 2024-12-06 16:21 | PT.OPEX ---
PT [place] Outpatient Eval PT [facility] Outpatient Eval Start: 12/06/24 13:14 Freq: Status: Active Protocol: Document 12/06/24 13:15 CASIE (Rec: 12/06/24 16:00 CASIE [id number]) E-signed By Freya Puente DPT Physical Therapy Outpatient Evaluation Insurance Information Recert Due Date 03/06/25 Insurance Name Medicare B,Blue Cross/Blue Shield Medical Diagnosis R hip pain Treating Diagnosis R hip pain, R buttock pain, LBP, R ITB tightness, pelvic instability, core/hip/glut weakness, interrupted sleep Subjective Subjective Patient reports chronic R hip/buttock pain and R ITB tightness/pain for the last 3 months. States she was doing yoga and working out regularly when she started to have some soreness in her chest muscles. She stopped working out for a bit to recover. When she returned to working out she was doing a workout that included a lot of squats. She had flare up of R hip pain. She discontinued the workouts again to recover - hasn't been working out the last couple of months. She has been able to walk better again but continues to have R hip/buttock pain at night. Typically sleeps on her L side but has R hip/buttock/ITB pain that interrupts her sleep. Patient saw MD earlier this week . Started taking naproxsyn 2x/day, feels it has been helpful. Hasn't been using ice/heat. Pain range 0-5/ 10. Patient reports hx of LBP issues, disc issues. Denies any issues with LB lately but during PT session did report some LBP with bridging. 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 Pain range 0-5/10. Patient reports minimal to no pain during the day with standing, walking, sitting. She was having some pain in R hip/buttock/ITB with standing/walking a few months ago but that has been better. Continues to have R hip/buttock/ITB pain with laying down, rolling over. Pelvic alignment assessed and rotation noted this session. Able to improve alignment with MET. Patient reports some R hip pain with R hip flex and abd ROM. Core/hip/glut weakness noted with hx of LBP and currently R hip/buttock pain and pelvic instability. Patient has been able to be active with walking, states she can get 12,000 steps when out working in the yard/ garden. Sleep is interrupted by pain. She has been using naproxsyn the last couple of days - that seems to be helping some. Hasn't tried ice/heat. Able to loosen up LB/buttock/hips with MT treatment this session. Able to initiate some exercises and issue for HEP. Patient would benefit from skilled PT for pain/ sx management, improved R hip mobility/ROM, core/hip/ glut strengthening, posture/body mechanics training, improved pelvic stability, and establishment of HEP. Plan of Care Rehabilitation Good Potential Physical Therapy 1. Decrease R hip/buttock/ITB pain to less than/equal Goals to 3/10 with daily/home activities, sleep position, and with the progression of PT activities over the next 4-6 weeks. 2. Improve R hip mobility/ROM over the next 4-6 weeks for decreased stress on R hip, decreased R hip/buttock pain, improved tolerance for sidelying sleep positions, and improved sleep. 3. Improve hip/glut/LE/core strength and pelvic stability over the next 10-12 weeks for decreased stress to R hip/SI/pelvis, decreased R hip/buttock/ITB pain, improved tolerance for sidelying sleep position, improved sleep, and return to PLF with yoga/workouts without flare up of pain. 4. Patient will be I with HEP within 12 weeks for progression toward above goals, ongoing self management of pain/sx, ongoing self improvements in L hip ROM/mobility/strength, improved pelvic stability, and for return to daily/home/workout activities per PLF without flare up of pain. Coordination/ Referral Source Communication With Treatment Plan/ Manual Therapy,Therapeutic Exercises Direct Interventions Frequency/Duration 1x/week Patient Will Be Completion of LTG(s),Skills Plateau,Independent w/HEP, Discharged From Independently Progressing Therapy Evaluation Billing Untimed Code 20 Treatment Minutes Complexity Moderate Certification Information Initial 12/06/24 Certification Date Ending Certification 03/06/25 Date Provider Signature Yes Required Provider Signature POC & Medical Necessity Shows Agreement With Physician NPI Number Write NPI# Here Physician Comment/ : Change Physician Signature Please Sign/Date Here & Date Requested
== END 2025-06-30 15:21 | disposition home or self-care (01) ==
PROVIDERS: PCP Internal Medicine; Visit Provider Internal Medicine
DX: M25.551 Pain in right hip (principal); Z51.89 Encounter for other specified aftercare
CPT/HCPCS: 97110; 97140; 97162

== ENCOUNTER 2025-05-12 15:15 | Emergency (ER) | payer MEDICARE, BC, SELFPAY ==
--- OUTSIDE RECORDS SUMMARY | 2025-05-12 15:17 | XMS_ITS | Clinical Summary ---
Author Organization [facility] Address [address] [place] [address] Care Team Providers Care Wheelabrator Operator Name Role Phone Misty Mckoy DO Primary Care Provider Allergies No known active allergies Medications No known medications Active Problems Problem Noted Date Diagnosed Date Onychomycosis-right second toe 12/31/2013 Personal history of colonic polyps 09/13/2011 Overview (09/13/2011): Colonoscopy 09/2011 polyp repeat in 5 years Unspecified vitamin D deficiency 09/02/2009 Unspecified hypothyroidism 09/02/2009 Resolved Problems Problem Noted Date Diagnosed Date Resolved Date Anxiety State, Unspecified 03/07/2007 0 02/16/2012 Immunizations Immunization Administration Dates Next Due DT (Age < [...] a day / 7-10 drinks per wk Comments No Sex and Gender Information Value Date Recorded Sex Assigned at Not on file Legal Sex Female 6:12 AM FRONT SERVICES AGENT Gender Identity Not on file Sexual Orientation Not on file 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 on file Not on file Not on file Obstetrics History Last Filed Vital Signs Vital Sign Reading Time Taken Comments Blood Pressure 145/73 04/27/2016 1:52 PM CDT Pulse 86 04/27/2016 1:52 PM CDT Temperature 36.4 C (97.6 F) 09/17/2015 8:40 AM CDT Respiratory Rate - [...] Hepatitis C screening for age 18-79 11/06/1977 Pneumococcal series for age 50+ (1 of 1 - PCV) 11/06/2009 Zoster (shingles) series for age 50+ (1 of 2) 11/06/2009 Mammogram for age 45-75 05/13/2016 05/13/20 15, 05/11/2015, 02/25/2013, Additional history exists Colonoscopy through age 75 09/12/2016 09/13/2011, Depression screening for age 12+ 09/16/2016 09/17/2015 BMI (ht and wt on same day) for age 18+ 04/27/2017 04/27/2016 Lipids for age 45-75 02/25/2018 02/25/2013, 12/26/19 09 Tetanus booster 05/04/2021 05/04/2011 DEXA/DXA scan for age 65+ 11/06/2024 Influenza Vaccine (#1) 2025 Pap test for age 21-65 03/24/2025 2, 03/24/2022, 03/09/2017, Additional history exists RSV vaccine for adults or (1 - 1-dose 75+ series) 11/06/2034 Hepatitis B series for 19+ Aged Out N o longer eligible based on patient's age to complete this topic Procedures Procedure Name Priority Date/Time Associated Diagnosis Comments CNC MILL PROGRAMMER THIN PREP PAP SCREEN IMAGED Routine 03/24/2022 1:25 PM CDT XR FFDM MAMMO UNI ADDL VIEWS RIGHT (IA) Routine 05/13/2015 2:30 PM FRONT SERVICES AGENT Abnormal mammogram LIPID PANEL W REFLEX MEASURED LDL Routine 02/25/2013 12:14 PM CDT Screening, lipid from Last 3 Months or Most Recently Relevant to Health Maintenance Results * CNC MILL PROGRAMMER THIN PREP PAP SCREEN IMAGED (03/24/2022 1:25 PM CDT) Case Report Gynecologic Cytology Report Case: [id number] Authorizing Provider: Zonia Trammell MD Collected: 03/24/2022 1325 Ordering Location: [facility] Received: 03/28/2022 0827 First Screen: Jossie Alexis Specimen: CNC MILL PROGRAMMER ThinPrep Vial Screening, Cervical 04/12/2022 6:32 PM CDT [facility] INTERPRETATION /RESULT NEGATIVE FOR INTRAEPITHELIAL LESION OR MALIGNANCY (NIL) (none) 04/12/2022 6:32 PM CDT [facility] at 1832 CDT SPECIMEN ADEQUACY Satisfactory for evaluation No endocervical component seen Obscuring Inflammation 04/12/2022 6:32 PM CDT [facility] HPV REQUEST HPV and PAP 04/12/2022 6:32 PM CDT [facility] Date of LMP 04/12/2022 6:32 PM CDT [facility] Comment:2015 Last Pap Date 04/12/2022 6:32 PM CDT [facility] Comment:03/2017 Abnormal Pap or Drayton Bx in last 5 years No 04/12/2022 6:32 PM CDT [facility] Menstrual Status Postmenopausal 04/12/2022 6:32 PM CDT [facility] Drayton Bx Done Today No 04/12/2022 6:32 PM CDT [facility] Additional Information 04/12/2022 6:32 PM CDT [facility] Comment: Interpreted at [facility] - [address], [place] [address] Automated Review Failed 04/12/2022 6:32 PM CDT [facility] Comment:Processing failed, m anual screening required. ThinPrep Imaging System, [employer] ANCILLARY TESTING CNC MILL PROGRAMMER HPV Ordered, Please see separate report 04/12/2022 6:32 PM CDT [facility] Note The pap test is a screening technique, not a diagnostic procedure. It is used primarily to screen for squamous cancers and precursor lesions. Published studies have shown that it is subject to both false negative and false positive results. The pap test should not be used as the sole means to diagnose or exclude pre-malignant and malignant lesions. 04/12/2022 6:32 PM CDT [facility] Other (Cervical) 03/24/2022 1:25 PM CDT 03/28/2022 8:27 AM CDT us Zonia Trammell MD PATHOLOGY/CYTOLOGY Final R esult [facility] [address] [place] [address], [place] * XR FFDM MAMMO UNI ADDL VIEWS RIGHT (05/13/2015 2:30 PM FRONT SERVICES AGENT) Anatomical Region Laterality Modality BREASTS, Breast Right Right Mammograph y Impressions 05/13/2015 7:25 PM FRONT SERVICES AGENT BI-RADS Category 4: Suspicious RECOMMENDATION: Stereotactic biopsy. NOTE: I discussed today's imaging findings with the patient. The biopsy will be scheduled through the Clinic Furniture Sales Associate prior to the patient leaving today. Jack Vieira D.O. Diagnostic Radiologist [email or web address] GLORIA/yamilka / Narrative 05/13/2015 7:25 PM FRONT SERVICES AGENT ADDITIONAL VIEWS RIGHT BREAST DIGITAL MAMMOGRAM, 05/13/2015 CLINICAL HISTORY: Recall for further evaluation of developing cluster of microcalcifications in the posterolateral RIGHT breast seen on screening mammogram 05/11/2015. BREAST COMPOSITION: Scattered fibroglandular densities. TECHNIQUE: Standard MLO, standard ML and magnification views of the RIGHT breast in the MLO and CC projections. FINDINGS: Examination demonstrates an indeterminate cluster of microcalcifications in the posterior 9 o c lock position of the RIGHT breast. The cluster measures approximately 3 mm in diameter. Misty Singht DO MAMMO Final Resul t * (ABNORMAL) LIPID PANEL W REFLEX MEASURED LDL (02/25/2013 12:14 PM CDT) CHOLESTEROL,TOTAL 207(H) 100 - 199 mg/dL 02/25/2013 12:43 PM CDT [facility] TRIGLYCERIDES 103 <150 mg/dL 02/25/2013 12:43 PM CDT [facility] HDL CHOLESTEROL 73 >40 mg/dL 3 12:43 PM T [facility] NON-HDL CHOLESTEROL 134 <145 mg/dl 02/25/2013 12:43 PM T [facility] CHOL/HDL RATIO 2.84 <4.50 02/25/2013 12:43 PM T [facility] LDL CHOLESTEROL 113 <=130 mg/dL 02/25/2013 12:43 PM T [facility] PATIENT STATUS NON-FASTI NG 02/25/2013 12:43 PM T [facility] Blood specimen (specimen) BLOOD SPECIMEN / Unknown Venipuncture / Unknown 02/25/2013 12:14 PM CDT 02/25/2013 12:14 PM CDT Misty Singht DO CHEMISTRY Final Resul t [facility] [address] [place], [place] [id number] from Last 3 Months or Most Recently Relevant to Health Maintenance Insurance [facility] Care Teams Wheelabrator Operator Relationship Specialty Start Date End Date Misty Mckoy DO PCP - General Family Practice 09/05/11
[2025-05-12 15:26] VITALS: BP 161/94; PULSE 77; RESP 18; TEMP 36.1; O2SAT 98; BMI 26.1
--- NOTE | 2025-05-12 18:28 | CRLHL7_ITS ---
For Patients: As a result of the Century Cures Act, medical imaging exams and procedure reports are released immediately into your electronic medical record. You may view this report before your referring provider. If you have questions, please contact your health care provider. INDICATION: Left-sided chest pain. TECHNIQUE: Chest 2 views. COMPARISON: None. FINDINGS/ IMPRESSION: No consolidation, effusion or pneumothorax. Cardiac size is within normal limit without pulmonary edema. No acute osseous abnormality. Dictated by Devi Olsen MD @ 05/12/2025 6:54:29 PM (Electronically Signed)
--- NOTE | 2025-05-12 18:30 | CRLHL7_ITS ---
For Patients: As a result of the Century Cures Act, medical imaging exams and procedure reports are released immediately into your electronic medical record. You may view this report before your referring provider. If you have questions, please contact your health care provider. INDICATION: intermittent dizziness TECHNIQUE: CT Head without i.v. contrast. Coronal and sagittal reformats were obtained. COMPARISON: None FINDINGS: CSF space: Unremarkable for age. Brain: No evidence of mass, acute infarction or hemorrhage is seen. No mass-effect or midline shift is seen. Mild diffuse cortical atrophy is noted. The brain parenchyma is otherwise normal in appearance with preservation of the booth-white matter junction. Calvarium: The visualized paranasal sinuses are well aerated. The mastoid air cells are clear. The visualized orbits are grossly unremarkable. The calvarium is unremarkable in appearance with no fractures identified. IMPRESSION: 1. No evidence of acute infarction, intracranial hemorrhage, or mass-effect seen. Please note that all CT scans at this facility use dose modulation, iterative reconstruction, and/or weight-based dosing when appropriate to reduce radiation dose to as low as reasonably achievable. Dictated by: Beni Choudhary MD @ 05/12/2025 18:57:33 (Electronically Signed)
--- NOTE | 2025-05-12 18:30 | ED.GENADULT ---
HPI - General Adult General Date Seen: 05/12/25 Chief complaint: Chest Pain Stated complaint: panic attack Time Seen by Provider: 05/12/25 18:16 Source: patient Mode of arrival: ambulatory Limitations: no limitations History of Present Illness HPI narrative: Patient is a 64-year-old female presenting to the emergency department for multiple complaints. She states the past week she has been having intermittent left-sided chest pain, shoulder pain, neck pain and dizziness. She is unsure if this is related to anxiety your not she states she has been very anxious. States the pain is intermittent and sometimes has in her chest and sometimes in her shoulder. She currently states pain is in her left jaw and left neck. The pain and numbness to her left arm has since resolved. Denies having symptoms like this prior to the past week. She has seen her primary care provider for this and has a stress test scheduled. Symptoms persisted again today so she came to the emergency department to be evaluated. Denies any shortness of breath. Also states she will have intermittent dizziness. States sometimes she feels like she is going to fall to the side. Unable is safe it is always the same direction. Denies any lightheadedness. Is unsure if the dizziness or the anxiety starts 1st but she does states she always gets anxious when these symptoms occur. She states same thing with the chest pain in the sure she is getting anxious in causing chest pain or she has chest pain which makes her anxious. She does have chills occasionally she states. Denies any diarrhea, constipation, dysuria. Does states she has intermittent upper abdominal discomfort but states it is not painful. States she has not had much of an appetite. No other concerns noted. Related Data Previous Rx's ?Medication ?Instructions ?Recorded simvastatin 10 mg tablet 10 mg PO .HS #90 tabs 05/14/24 valsartan 80 1 tab PO QDAY #90 tabs 05/14/24 mg-hydrochlorothiazide 12.5 mg tablet Allergies Allergy/AdvReac Type Severity Reaction Status Date / Time No Known Drug Allergies Allergy Verified 12/03/24 09:27 Review of Systems Status of ROS: Reports: 10 or more systems reviewed and unremarkable except as noted in History and below [facility] Medical History History of diverticulitis ?Z87.19 - Personal history of other diseases of the digestive system (ICD-10) Surgical History History of foot surgery ?Z98.890 - Other specified postprocedural states (ICD-10) History of benign breast biopsy (2015) ?Z98.890 - Other specified postprocedural states (ICD-10) History of basal cell carcinoma (BCC) of skin (2019) ?Z85.828 - Personal history of other malignant neoplasm of skin (ICD-10) Social History What is your current living situation?: I presently have a place to live Problems where you live: no known problems In the past 12 months, utilities in danger of being shut off: no In past 12 months, lack of transportation kept you from medical appts, meetings, work, or getting things needed for daily living: no In the past 12 mos, have been you worried that your food would run out before you had money to buy more?: never true In the past 12 mos, the food you bought just didn't last and you didn't have money to buy more?: never true Smoking Status: Current some day smoker How often does anyone, including family, friends and others, physically hurt you: never How often does anyone, including family, friends and others, insult or talk down to you: never How often does anyone, including family, friends and others, threaten you with harm: never How often does anyone, including family, friends and others, scream or curse at you: never Exam Narrative: Exam Narrative: Const: Well-nourished, Well-developed, in mild distress Eyes: PERRL, no conjunctival injection, and symmetrical lids HENT: Atraumatic external nose and ears. Moist mucous membranes. Neck: Symmetric, trachea midline, No thyromegaly. CVS: RRR, No murmurs or gallops. Peripheral pulses 2+ and equal in all extremities RESP: Unlabored respiratory effort. Clear to auscultation bilaterally. GI: Nontender/Nondistended, No rebound or guarding. MSK:Extremities w/o deformity, Normal Active ROM Skin: Warm, Dry. No rashes or lesions. Neuro: Normal Muscle tone, Cranial nerves 2-12 grossly intact, normal [id number], normal [id number], normal gait, normal strength 5/5 upper lower extremities bilaterally, normal sensation upper and lower extremities bilaterally, normal rapid alternating movements. Psych: Awake, Alert, & Oriented x3. Appropriate mood and affect. Const: Vital Signs, click to edit/add: Vital Signs - 24 hr 05/12/25 15:26 05/12/25 18:48 05/12/25 19:00 Temperature 97.0 F L Pulse Rate Pulse Rate [Right Pulse Oximeter] 77 Respiratory Rate 18 15 14 Blood Pressure Blood Pressure [Ri ght Upper Arm] 161/94 H Pulse Oximetry 98 Oxygen Delivery Me thod Room Air 05/12/25 19:15 05/12/25 19:21 Temperature Pulse Rate 58 L Pulse Rate [Right Pulse Oximeter] Respiratory Rate 23 14 Blood Pressure 137/92 H Blood Pressure [Ri ght Upper Arm] Pulse Oximetry Oxygen Delivery Me thod Course Vital Signs Vital signs: Initial Vital Signs Temperature 97.0 F L 05/12/25 15:26 Temperature Source Temporal Artery Scan 05/12/25 15:26 Pulse Rate 77 05/12/25 15:26 Respiratory Rate 18 05/12/25 15:26 Blood Pressure 161/94 H 05/12/25 15:26 Blood Pressure Mean 116 H 05/12/25 15:26 Blood Pressure Position Sitting 05/12/25 15:26 Pulse Oximetry 98 05/12/25 15:26 Oxygen Delivery Method Room Air 05/12/25 15:26 Vital Signs Temperature 97.0 F L 05/12/25 15:26 Pulse Rate 77 05/12/25 15:26 Respiratory Rate 18 05/12/25 15:26 Blood Pressure 161/94 H 05/12/25 15:26 Pulse Oximetry 98 05/12/25 15:26 Oxygen Delivery Method Room Air 05/12/25 15:26 Temperature 97.0 F L 05/12/25 15:26 Pulse Rate 58 L 05/12/25 19:21 Respiratory Rate 14 05/12/25 19:21 Blood Pressure 137/92 H 05/12/25 19:21 Pulse Oximetry 98 05/12/25 15:26 Oxygen Delivery Method Room Air 05/12/25 15:26 Medical Decision Making MDM Narrative Medical decision making narrative: Patient is a 64-year-old female presenting to the emergency department for multiple complaints. Her main pain distal chest pain and intermittent arm pain/numbness. The symptoms have resolved she is only having some mild neck pain. The differential diagnosis of chest pain is broad and includes common etiologies such as musculoskeletal strain, GERD, pneumonia, etc. More serious etiologies considered include PE, coronary artery disease, pneumothorax, aortic dissection, aortic aneurysm. I cannot her throat been D-dimer ordered. Will order troponin EKG to look for cardiac abnormalities. She is otherwise appearing stable my concern for a dissection or aortic aneurysm rupture of her low. Chest x-ray ordered for for times pneumonia pneumothorax. She was also having dizziness. The differential diagnosis of vertigo is broad and includes common etiologies such as menieres disease, labyrinthitis, benign positional vertigo, otitis media, etc. More serious etiologies considered include central etiologies such as tumor, intracerebral bleed, dissection, ischemic cerebral vascular accident. Considering she had no recent viral symptoms, sign currently dizzy seems lab colitis is unlikely. She is currently asymptomatic in the symptoms could all be related to anxiety but I will order a head CT as she does states she feels like she will fall off to 1 side. Again she is unable to safe it is always the same side. Will look for any intracranial abnormalities. CT scan of his head and chest x-ray interpreted independently by myself and the radiologist showing no acute concerning abnormalities. EKG interpreted by myself shows no acute concerning abnormalities. Lab work all returned showing no acute concerning findings. She has been asymptomatic in the emergency department. On my review vital signs are stable throughout time in in the emergency department. Oximetry stayed in the mid to high 90s. 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 At this time I do believe she is safe for discharge. She is agreeable to this plan. Lab Data Labs: Lab Results 05/12/25 Range/Units 19:15 WBC 8.22 (4.50-11.00) K/uL RBC 4.75 (4.00-5.20) m/uL Hgb 14.2 (12.0-16.0) gm/dL Hct 42.4 (33.0-51.0) % MCV 89 (80-100) fL MCH 30 (26-34) pg MCHC 34 (32-36) gm/dL RDW Coeff of Coreen 12.6 (11.5-15.5) % Plt Count 323 (140-440) K/uL Neut % (Auto) 59.4 (42.0-72.0) % Lymph % (Auto) 30.0 (20-44) % [place] % (Auto) 9.6 (0.0-11.0) % Eos % (Auto) 0.2 (0.0-7.0) % Baso % (Auto) 0.7 (0.0-3.0) % Neut # (Auto) 4.87 (1.7-7.0) K/uL Lymph # (Auto) 2.47 (0.90-2.90) K/uL [place] # (Auto) 0.80 (0.00-0.90) K/UL Eos # (Auto) 0.02 (0.00-0.50) K/uL Baso # (Auto) 0.06 (0.00-0.30) K/uL Abs Immat Gran (auto) 0.01 (0.00-0.30) K/uL Imm/Tot Granulo (auto) 0.1 % D-Dimer Quant (PE/DVT) 0.20 (0.00-0.50) ug/ml Sodium 139 (135-149) mmol/L Potassium 3.5 L (3.6-5.1) mmol/L Chloride 101 (96-114) mmol/L Carbon Dioxide 26 (20-32) mmol/L Anion Gap 12 (7-15) mEq/L BUN 11 (7-30) mg/dL Creatinine 0.9 (0.5-1.5) mg/dL Estimated Creat Clear 52.51 Estimated GFR 71 ml/min Glucose 95 (60-115) mg/dL Calcium 9.9 (8.4-10.6) mg/dL Magnesium 2.3 (1.5-2.6) mg/dL Total Bilirubin 0.9 (0.1-1.5) mg/dL AST 28 (12-35) U/L ALT 19 (4-35) U/L Alkaline Phosphatase 53 (40-150) U/L Troponin I < 0.01 (0.01-0.04) ng/mL Total Protein 7.3 (6.0-8.3) g/dL Albumin 4.4 (3.3-5.0) g/dL SARS-CoV-2 (PCR) Negative SARS-CoV-2 (Negative) Influenza Type A (PCR) Negative PCR FLU A (Negative) Influenza Type B (PCR) Negative PCR FLU B (Negative) RSV (PCR) Negative PCR RSV (Negative) Imaging Data CT scan head: Attestation: I have reviewed the pertinent imaging results. Radiologist's impression: 1. No evidence of acute infarction, intracranial hemorrhage, or mass-effect seen. Please note that all CT scans at this facility use dose modulation, iterative reconstruction, and/or weight-based dosing when appropriate to reduce radiation dose to as low as reasonably achievable. Dictated by: Beni Choudhary MD @ 05/12/2025 18:57:33 Chest x-ray: Attestation: I have reviewed the pertinent imaging results. Radiologist's impression: No consolidation, effusion or pneumothorax. Cardiac size is within normal limit without pulmonary edema. No acute osseous abnormality. Dictated by Devi Olsen MD @ 05/12/2025 6:54:29 PM ECG Data Attestation: I personally reviewed and interpreted this ECG as follows: Prior ECG tracings: not available for review Interpretation: Normal sinus rhythm with a rate of 70 beats per minute, normal intervals, normal axis, no ST or T-wave abnormalities. Discharge Plan Discharge Clinical Impression: Atypical chest pain Patient Disposition: Home, Self-Care Condition: Stable Instructions: Noncardiac Chest Pain (ED) Additional Instructions: I do not see any acute concerning abnormalities. I do recommend following up with your primary care provider about the symptoms. Make sure to go to stress test. Return to emergency department for new or worsening symptoms. Prescriptions: No Action valsartan-hydrochlorothiazide 80-12.5 mg tablet 1 tab PO QDAY Qty: 90 3RF simvastatin 10 mg tablet 10 mg PO .HS Qty: 90 3RF Follow Up/Referrals: Zonia Trammell MD [Primary Care Provider, Internal Medicine] Stand Alone Forms: [employer] Info Instructions
--- OUTSIDE RECORDS SUMMARY | 2025-05-12 18:35 | XMS_ITS | Data Portability ---
Author Organization [facility], Main Office Address [address] [place] [address] Assessment Encounter Date Assessment Date Assessment LastModified [...] hours. Sutures removed in 1 week in [place]. Written and verbal wound care instructions given. [...] Address Organization Details Recorded Time Hyperlipidemi a [id number] Active 2018 Roque Cee MD [address] [place] [address],[address], [place], [address], [facility] 9 22:43:41 Problem Notes None recorded. [...] Status Current Every Day Smoker Not Available [facility] 05/05/2020 03:34:37 Animal Exposure? Yes 2 Dogs, 1 Cat Information not available 09/03/2018 What Was The Date Of Your Most Recent Tobacco Screening? 09/03/2018 [id number] Information not available 05/05/2020 Sun Exposure Minimal Information not available 09/03/2018 Do You Use Sunscreen Routinely? Yes [id number] Information not available 05/05/2020 Tanning Bed Exposure No Information not available 09/03/2018 Sex: Unknown Functional Status Question Answer Note LastModified by Organization D etails LastModified Time What is your level of alcohol consumption? Moderate [id number] Information not available 05/05/2020 Mental Status None recorded. Family History Relationship [...] Not available 2018 10:42:23 Paternal Grandmother Malignant neoplasm of breast 62 65 Not available 2018 10:42:23 Medical History Condition Response Diabetes N Bleeding Disorder N Squamous Cell Carcinoma N Arthritis N Blood Clot N AIDS/HIV N Tuberculosis N Cancer N Melanoma N Stroke N Thyroid Problems N Asthma N Pacemaker [...] Diagnosis/Indication Diagnosis SNOMED-CT Code Diagnosis ICD10 Code Diagnosis IMO Codes Diagnosis Note 1180 Roque Cee MD Main Office [address] [facility] [address],[place] [address] 09/03/2018 10:39:17 09/03/2018 22:53:03 Basal cell carcinoma of face [id number] C44.319 Health Concerns Section Related Observation LastModified by Organization Detai ls LastModified Time None Recorded Concern Status LastModified by Organization Details LastModified Time None Recorded Advance Directives Directive None Recorded Payers Insurance Date Sequence Insurance Name Policy Number Policy Soto Covered Member ID Soto Member ID Guarantor Name 09/17/2018 1 [employer] CHOICE - [facility] - CHOICE PLUS (POS) IFB Diya Watts [id number] Diya Watts 09/17/2018 2 [employer] IFB Diya Watts [id number] Diya Watts 10/31/2018 1 [employer] - IFB (PPO) IFB Diya Watts [id number] Diya Watts Notes Date Note Type Note Provider Name and Address Organization Details Recorded Time 09/03/2018 text/html 57-year-old female known to me from the [...] cell nor melanoma. Roque Cee MD [address] [facility], [place], [address], [facility] 09/04/2018 00:29:53 OBGyn Episode No OBEpisode recorded.
[2025-05-12 18:48] VITALS: RESP 15
[2025-05-12 19:00] VITALS: RESP 14
[2025-05-12 19:15] VITALS: RESP 23
[2025-05-12 19:21] VITALS: BP 137/92; PULSE 58; RESP 14
[2025-05-12 19:31] LABS: Hematocrit* 42.4 % (33.0-51.0); Hemoglobin* 14.2 gm/dL (12.0-16.0); Immature Granulocytes Abs Auto 0.01 K/uL (0.00-0.30); Immature Granulocytes Pct Auto 0.1 %; Lymphocytes Absolute Auto 2.47 K/uL (0.90-2.90); Mean Corpuscular HGB Conc 34 gm/dL (32-36); Mean Corpuscular Hemoglobin 30 pg (26-34); Mean Corpuscular Volume 89 fL (80-100); RDW Coefficient of Variation % 12.6 % (11.5-15.5); Red Blood Count* 4.75 m/uL (4.00-5.20); White Blood Count* 8.22 K/uL (4.50-11.00)
[2025-05-12 20:19] LABS: D Dimer Quantitative* 0.20 ug/ml (0.00-0.50); PCR FLU A Negative PCR FLU A (Negative); PCR FLU B Negative PCR FLU B (Negative); PCR RSV Negative PCR RSV (Negative); SARS PCR* Negative SARS-CoV-2 (Negative)
[2025-05-12 20:20] LABS: Slide Review Reflex No
[2025-05-12 20:30] LABS: Albumin* 4.4 g/dL (3.3-5.0); Chloride* 101 mmol/L (96-114); Potassium* 3.5 mmol/L (3.6-5.1); Sodium* 139 mmol/L (135-149)
[2025-05-12 20:33] LABS: Alanine Aminotransferase* 19 U/L (4-35); Alkaline Phosphatase* 53 U/L (40-150); Anion Gap 12 mEq/L (7-15); Aspartate Amino Transferase* 28 U/L (12-35); Bilirubin Total* 0.9 mg/dL (0.1-1.5); Blood Urea Nitrogen* 11 mg/dL (7-30); Calcium* 9.9 mg/dL (8.4-10.6); Carbon Dioxide* 26 mmol/L (20-32); Creatinine* 0.9 mg/dL (0.5-1.5); Est. Creatinine Clearance* 52.51; Estimated Glomerular Filt Rate 71 ml/min; Glucose* 95 mg/dL (60-115); Total Protein* 7.3 g/dL (6.0-8.3)
== END 2025-05-12 21:10 | disposition home or self-care (01) ==
PROVIDERS: Emergency Provider Student in an Organized Health Care Education/Training Program; PCP Internal Medicine
DX: R07.89 Other chest pain (principal); R42 Dizziness and giddiness
CPT/HCPCS: 36415; 70450; 71046; 80053; 83735; 84484; 85025; 85379; 87631; 93005; 99284; 99285

== ENCOUNTER 2025-05-20 12:58 | Outpatient (CLI) | payer MEDICARE, BC, SELFPAY ==
[2025-05-20 13:45] VITALS: BP 116/78; PULSE 89; RESP 16
--- NOTE | 2025-05-20 13:51 | P.STN_ITS ---
Stress Test Note Date Date Seen: 05/20/25 Date of test: 05/20/25 Providers Primary care provider: Zonia Trammell Stress test physician: Millie Reynolds Stress Test Note Stress test ordered: Stress Echo Indication for test: Left arm discomfort Stress test medicine: None Results discussion: Resting EKG: Sinus rhythm, 80 beats per minute. Resting blood pressure: 128/78 Stress test: Patient is consented on ordered stress test of treadmill stress echo. Patient agrees to proceed. Standard Gerardo protocol is followed. Patient exercised to 9 minutes 2nd, stopping due to being at target heart rate in reaching exercise tolerance. This was equivalent to 10.5 Mets. She had a maxi mum heart rate of 163 beats per minute which was 123% of a calculated target heart rate of 132. She had a maximal blood pressure of 164/84 during exercise giving a rate pressure product of 26,732. Patient had some mild inferolateral ST segment flattening. During recovery, she did state that she had a small sense of chest pain, described is almost a pinching sensation. Resolved in recovery. Awaiting echo images to couple this for a full formal diagnostic. EKG monitoring alone can be associated with false positives, particularly in women. Thus, awaiting echo images for final diagnostic report. Impression: Subjectively positive with chest symptoms, objectively mild inferolateral ST segment depression potentially suggestive of ischemia. Follow up suggested: Patient is discharged in stable condition, asymptomatic at time of discharge. She will await the echo images to couple this for a full formal diagnostic. She is aware if the echo images confirm any regional wall motion abnormalities, will need further evaluation for potential ischemic disease. She is asymptomatic at this time.
== END 2025-05-20 13:49 | disposition home or self-care (01) ==
LOC: STRESS 12:59
PROVIDERS: PCP Internal Medicine; Visit Provider Internal Medicine
DX: M79.602 Pain in left arm (principal); R07.89 Other chest pain
CPT/HCPCS: 93016; 93325; 93351

== ENCOUNTER 2025-06-18 09:13 | Outpatient (CLI) | payer MEDICARE, BC, SELFPAY | END 2025-06-18 09:14 | disposition home or self-care (01) | LOC: NFLDREF 06-23 08:47 | PROVIDERS: PCP Internal Medicine; Referring Provider Internal Medicine; Visit Provider Internal Medicine | DX: E78.5 Hyperlipidemia, unspecified (principal); I10 Essential (primary) hypertension | CPT/HCPCS: 80048; 80061 ==